=== PATIENT | female | born 1995 | race Caucasian/White ===

== ENCOUNTER → 2024-07-18 20:17 | Outpatient (REF) | payer OTHER, SELFPAY | LOC: PAVMRI 20:17 | PROVIDERS: ATTENDING PHYSICIAN Surgery; FAMILY PHYSICIAN Nurse Practitioner Family | DX: R10.13 Epigastric pain (principal) | CPT/HCPCS: 74181 ==

== ENCOUNTER 2024-08-14 18:58 | Emergency (ER) | payer OTHER, SELFPAY ==
[2024-08-14 18:59] VITALS: BP 114/68
--- NOTE | 2024-08-14 20:00 | ED.GENMED ---
History of Present Illness
General
Chief Complaint: Skin Surface Trauma
Source: patient
Exam Limitations: none
Time Seen by Provider: 08/14/24 19:28
Nursing documentation reviewed up to this point in time: agreed with
History of Present Illness
History of Present Illness:
Patient is a 28-year-old female who presented with laceration to right middle finger while cutting bread with a knife. No other injuries. Shots up-to-date. She is right-hand dominant.
Past History
Past History
ED Past Medical History: None
ED Past Surgical History: None
Social History
Tobacco: Non-smoker
Review of Systems
Review of Systems
Allergies reviewed?: Yes
All Other Systems: ROS reviewed and negative except as documented in HPI and ROS
Constitutional: Reports no symptoms
Skin: Reports other (Right middle finger laceration)
Neurological: Reports no symptoms
Psychiatric: Reports no symptoms
Phy Exam
General Physical Exam
General Presentation: no apparent distress
General age: appears stated age
General Skin: warm and dry
General Habitus: normal
General Mental: alert
General Hydration: appears well hydrated
Neurological Exam
Neurological Exam: alert and oriented x3
Musculoskeletal Exam
Musculoskeletal Exam: full ROM and other (Right middle finger with 2 cm horizontally situated full-thickness laceration to volar aspect of middle finger middle phalanx no tendon deficit able to flex and extend normal distal)
Skin Exam
Skin Exam: normal color
Psychiatric Exam
Psychiatric Exam: normal mood/affect
Course
Vital Signs
Initial and Last Documented VS:
Initial Vital Signs
Temp Pulse Resp BP Pulse Ox
98.4 F 79 19 114/68 96
08/14/24 18:59 08/14/24 18:59 08/14/24 18:59 08/14/24 18:59 08/14/24 18:59
Last Documented Vital Signs
Temp Pulse Resp BP Pulse Ox
98.4 F 79 19 114/68 96
08/14/24 18:59 08/14/24 18:59 08/14/24 18:59 08/14/24 18:59 08/14/24 18:59
Procedures
Laceration Closure
Right Middle Volar Third Finger:
Status of Wound: clean
Size of Wound in cm: 2
Description of Wound Edges: sharp
Preparation: cleaned with saline
Anesthesia: 1% Lidocaine
Revision/Debridement: routine- no revision
Type of Closure: single layer closure and interrupted sutures
Skin Closure Material: skin aidan and 5-0 nylon
Number of sutures: 3
MDM/Problems Addressed
Differential Diagnosis Includes:
Not limited to laceration
MDM/Problems Addressed:
Patient with simple laceration to right middle finger repaired as documented tetanus up-to-date no evidence of infection or tendon deficit.
*Critical Care Note
Total Time (30-74mins, 75-104mins- exclusive of procedures): Not Applicable
ED Attending Note
-
Portions of this chart may have been created with voice recognition software.� Occasional wrong word or��sound alike� substitutions may have occurred due to the inherent limitations of voice recognition software.
Discharge Plan
Departure
Disposition: Home (Routine Discharge)
Date of Disposition: 08/14/24
Time of Disposition: 20:03
Patient with high blood pressure during this ER visit?: Yes
Condition: Fair
Covid-19: Not Applicable
Discharge Problem:
Finger laceration
Instructions: Laceration Repair With Stitches (DC)
Prescriptions:
No Action
No Current Medications
0
Additional Instructions:
Keep wound clean and dry for 24 hours after 24 hrs wash with soap and water pat dry and apply small layer of antibiotic ointment to the area.
Do wound care twice a day. See family doctor the next 2 days as needed for wound check sutures are to be removed in 10 to 12 days. Return if any signs of infection of increased pain swelling redness drainage fever chills.
Interventions
Interventions:
*Risk Screen - Suicide Last Done: 08/14/24 18:59
*General Assessment Last Done: 08/14/24 18:59
*Neglect/Abuse Screening Last Done: 08/14/24 18:59
Discharge Date and Time
Print Language: IVORIAN
== END 2024-08-14 20:10 | disposition home or self-care (01) ==
LOC: EMR 18:58
PROVIDERS: EMERGENCY PHYSICIAN Emergency Medicine; FAMILY PHYSICIAN Family Medicine
DX: S61.212A Laceration without foreign body of right middle finger without damage to nail, initial encounter (principal); W26.0XXA Contact with knife, initial encounter
CPT/HCPCS: 99282; 12001

== ENCOUNTER → 2024-08-22 13:22 | Outpatient (REF) | payer OTHER, SELFPAY | LOC: HWRAD 13:22 | PROVIDERS: ATTENDING PHYSICIAN Obstetrics & Gynecology Gynecology; FAMILY PHYSICIAN Family Medicine | DX: N94.6 Dysmenorrhea, unspecified (principal) | CPT/HCPCS: 76830; 76856 ==

== ENCOUNTER 2024-10-07 14:53 | Outpatient (RCR) | payer OTHER, SELFPAY | END 2024-10-07 23:59 | disposition home or self-care (01) | LOC: RPT 14:53 | PROVIDERS: ATTENDING PHYSICIAN Internal Medicine; FAMILY PHYSICIAN Family Medicine | DX: M62.89 Other specified disorders of muscle (principal); K59.4 Anal spasm; K59.02 Outlet dysfunction constipation; Z73.6 Limitation of activities due to disability | CPT/HCPCS: 97112; 97140; 97162; 97530 ==

== ENCOUNTER → 2024-10-23 12:51 | Outpatient (REF) | payer OTHER, SELFPAY | LOC: RCS 12:51 | PROVIDERS: ATTENDING PHYSICIAN Nurse Practitioner Family | DX: R00.2 Palpitations (principal) | CPT/HCPCS: 93225; 93226 ==

== ENCOUNTER 2024-10-28 15:02 | Outpatient (RCR) | payer OTHER, SELFPAY | END 2024-10-28 23:59 | disposition home or self-care (01) | LOC: RPT 15:02 | PROVIDERS: ATTENDING PHYSICIAN Internal Medicine; FAMILY PHYSICIAN Family Medicine | DX: M62.89 Other specified disorders of muscle (principal); K59.4 Anal spasm; K59.02 Outlet dysfunction constipation; Z73.6 Limitation of activities due to disability | CPT/HCPCS: 97110; 97112; 97140; 97530 ==

== ENCOUNTER 2024-11-11 06:17 | Day surgery (SDC) | payer OTHER, SELFPAY | END 2024-11-11 14:23 | disposition home or self-care (01) | LOC: GI 06:17 | PROVIDERS: ATTENDING PHYSICIAN Internal Medicine | DX: R10.13 Epigastric pain (principal); R13.10 Dysphagia, unspecified; K29.60 Other gastritis without bleeding; K29.50 Unspecified chronic gastritis without bleeding | CPT/HCPCS: 43239; 88305; 88342 ==

== ENCOUNTER 2024-12-03 15:08 | Outpatient (RCR) | payer OTHER, SELFPAY | END 2024-12-03 23:59 | disposition home or self-care (01) | LOC: RPT 15:08 | PROVIDERS: ATTENDING PHYSICIAN Internal Medicine; FAMILY PHYSICIAN Family Medicine | DX: M62.89 Other specified disorders of muscle (principal); K59.4 Anal spasm; K59.02 Outlet dysfunction constipation; Z73.6 Limitation of activities due to disability | CPT/HCPCS: 97112; 97140; 97530 ==

== ENCOUNTER → 2024-12-03 15:50 | Outpatient (REF) | payer OTHER, SELFPAY | LOC: RCS 15:50 | PROVIDERS: ATTENDING PHYSICIAN Internal Medicine Cardiovascular Disease; FAMILY PHYSICIAN Nurse Practitioner Family | DX: R00.2 Palpitations (principal) | CPT/HCPCS: 93306 ==

== ENCOUNTER 2025-01-01 15:09 | Outpatient (RCR) | payer OTHER, SELFPAY | END 2025-01-01 23:59 | disposition home or self-care (01) | LOC: RPT 15:09 | PROVIDERS: ATTENDING PHYSICIAN Internal Medicine; FAMILY PHYSICIAN Family Medicine | DX: M62.89 Other specified disorders of muscle (principal); K59.4 Anal spasm; K59.02 Outlet dysfunction constipation; Z73.6 Limitation of activities due to disability; Z98.890 Other specified postprocedural states | CPT/HCPCS: 97112; 97140; 97164; 97530 ==

== ENCOUNTER 2025-01-27 15:02 | Outpatient (RCR) | payer OTHER, SELFPAY | END 2025-01-27 23:59 | disposition home or self-care (01) | LOC: RPT 15:02 | PROVIDERS: ATTENDING PHYSICIAN Internal Medicine; FAMILY PHYSICIAN Family Medicine | DX: M62.89 Other specified disorders of muscle (principal); K59.4 Anal spasm; K59.02 Outlet dysfunction constipation; Z73.6 Limitation of activities due to disability; Z98.890 Other specified postprocedural states | CPT/HCPCS: 97110; 97112; 97140; 97530 ==

== ENCOUNTER 2025-02-02 10:19 | Emergency (ER) | payer OTHER, SELFPAY ==
[2025-02-02 10:25] VITALS: BP 126/74
--- NOTE | 2025-02-02 11:10 | ED.GENMED ---
History of Present Illness
General
Chief Complaint: Abdominal Pain
Source: patient
Exam Limitations: none
Time Seen by Provider: 02/02/25 10:53
History of Present Illness
History of Present Illness:
29-year-old female presents with intermittent upper abdominal pain that she has been having for several months today's episode got worse. She has seen GI in the past and has had an endoscopy and colonoscopy. She is tried elimination diets. She
recently saw an blow mold machine operator. This morning she woke up feeling shaky and drank an electrolyte drink and subsequently went to eat breakfast. While eating bread more severe abdominal pain in the center upper abdomen that radiated to both sides
around to the back. She had became lightheaded like she was going to pass out. There is no chest pain. She denies any change in her stools. She does note she is losing weight. No other complaints at this time
Past History
Past History
ED Past Medical History: None
ED Past Surgical History: None
Social History
Tobacco: Non-smoker
Phy Exam
Physical Exam
Physical Exam:
General: Well-appearing female no acute respiratory distress
HEENT: Normocephalic atraumatic
Heart: Regular rate and rhythm
Lungs: Clear no wheeze
Abdomen is soft tender to the epigastric region no guarding rebound normal bowel sounds
Extremities: No cyanosis or edema
Course
Orders/Labs/Results
Orders:
Orders
02/02/25 11:09
CT Abd/pel W Iv And Oral Contr Urgent
Comment:
Reason For Exam: abdominal pain
Iohexol [Omnipaque] See Protocol PO NOW STA
Test Result ONCE
02/02/25 11:17
Complete Blood Count/With Diff Urgent
Comprehensive Metabolic Panel Urgent
Free T4 Urgent
HCG, Serum Qualitative Screen Urgent
Lipase Urgent
TSH Reflex To Free T4 Urgent
Abnormal Lab Results
02/02/25
11:17
Calcium 10.6 H mg/dl
(8.4-10.2)
TSH (Reflex) 0.45 L uIU/ml
(0.47-4.68)
02/02/25 11:17
02/02/25 11:17
Vital Signs
Initial and Last Documented VS:
Initial Vital Signs
Temp Pulse Resp BP Pulse Ox
97.8 F 76 16 126/74 100
02/02/25 10:25 02/02/25 10:25 02/02/25 10:25 02/02/25 10:25 02/02/25 10:25
Last Documented Vital Signs
Temp Pulse Resp BP Pulse Ox
97.8 F 74 15 118/69 100
02/02/25 10:25 02/02/25 13:15 02/02/25 11:45 02/02/25 13:00 02/02/25 13:15
MDM/Problems Addressed
Differential Diagnosis Includes:
Abdominal pain. Consider gastritis versus constipation versus pancreatitis versus peptic ulcer disease
Check labs including lipase. She was told her TSH was low. Will recheck thyroid. CT with oral and IV contrast pending
*Critical Care Note
Total Time (30-74mins, 75-104mins- exclusive of procedures): Not Applicable
Update Note
Update Note:
CT performed shows moderate mount of stool in the transverse and descending colon. No other acute finding noted. Patient reassured. She is feeling somewhat better upon reassessment. Recommend she follow-up with her GI doctor.
ED Attending Note
-
Portions of this chart may have been created with voice recognition software.� Occasional wrong word or��sound alike� substitutions may have occurred due to the inherent limitations of voice recognition software.
Discharge Plan
Departure
Patient Disposition: Home (Routine Discharge)
Date of Disposition: 02/02/25
Time of Disposition: 15:24
Patient with high blood pressure during this ER visit?: No
Discharge Problem:
Abdominal pain
Instructions: Abdominal Pain
Prescriptions:
No Action
No Current Medications
0
Referrals:
Molly Butler CRNP [Family Provider] -
Activity Restrictions/Additional Instructions:
As discussed there was a large amount of stool noted in the colon on your CAT scan. Please use MiraLAX if needed for constipation. Follow-up with your GI team otherwise
Interventions
Interventions:
*Risk Screen - Suicide Last Done: 02/02/25 10:27
*General Assessment Last Done: 02/02/25 11:14
*Neglect/Abuse Screening Last Done: 02/02/25 10:27
*ED- Fall Risk Assessment Last Done: 02/02/25 11:14
*ED COVID-19 Vaccine History Last Done: 02/02/25 11:14
GM-Xbvghb-Nxpiohfxaj Assessment Last Done: 02/02/25 11:20
Discharge Date and Time
Print Language: TAIWANESE
[2025-02-02 11:14] VITALS: BMI 21.2
[2025-02-02] MEDS: OMNIPAQUE 50 ML PO (11:15)
[2025-02-02 11:25] LABS: % Basophils 0.7 % (0-2); % Eosinophils 1.6 % (0-6); % Immature Granulocytes 0.4 % (0-0.5); % Lymphocytes 20.9 % (20.5-51.1); % Monocytes 6.4 % (1.7-9.3); Absolute Eosinophils 0.1 10^3/uL (0-0.7); Absolute Lymphocytes 1.2 10^3/uL (1.2-3.4); Absolute Monocytes 0.4 10^3/uL (0.1-0.6); Absolute Neutrophils 3.9 10^3/uL (1.4-6.5); Hematocrit 40.3 % (37.0-47.0); Hemoglobin 14.3 g/dL (12.0-16.0); Mean Corp Hgb Conc. 35.5 g/dL (33.0-37.0); Mean Corpuscular Hgb 30.4 pg (27.0-31.0); Mean Corpuscular Volume 85.6 fL (81.0-99.0); Mean Platelet Volume 10.2 fL (7.4-10.4); Nucleated Red Blood Cells % 0 %; Platelet Count 217 10^3/uL (130-400); Red Blood Cell Count 4.71 10^6/uL (4.20-5.40); Red Cell Dist. Width 11.7 % (11.5-14.5); White Blood Cell Count 5.6 10^3/uL (4.8-10.8)
[2025-02-02 11:41] LABS: HCG, Serum Qualitative Screen Negative
[2025-02-02 11:43] LABS: Albumin 4.4 g/dl (3.5-5.0); Blood Urea Nitrogen 15 mg/dl (7-17); Carbon Dioxide 26 mmol/L (22-30); Estimated Creatinine Clearance 113 ml/min; Total Protein 6.8 g/dl (6.3-8.2); eGFR > 60.00
[2025-02-02 12:00] VITALS: BP 105/63
[2025-02-02 12:15] LABS: TSH Reflex To Free T4 0.45 uIU/ml (0.47-4.68)
[2025-02-02 12:19] LABS: ALT (SGPT) 16 U/L (0-35); AST (SGOT) 18 U/L (14-36); Alkaline Phosphatase 55 U/L (38-126); Calcium 10.6 mg/dl (8.4-10.2); Chloride 107 mmol/L (98-107); Glucose 97 mg/dl (70-99); Lipase 115 U/L (23-300); Potassium 3.8 mmol/L (3.5-5.1); Sodium 141 mmol/L (135-145); Total Bilirubin 0.5 mg/dl (0.2-1.3)
[2025-02-02 12:45] LABS: Free T4 1.06 ng/dl (0.78-2.19)
[2025-02-02 13:00] VITALS: BP 118/69
== END 2025-02-02 15:38 | disposition home or self-care (01) ==
LOC: EMR 10:19
PROVIDERS: Physician Assistant; EMERGENCY PHYSICIAN Student in an Organized Health Care Education/Training Program; FAMILY PHYSICIAN Nurse Practitioner Family
DX: R10.10 Upper abdominal pain, unspecified (principal); R42 Dizziness and giddiness
CPT/HCPCS: 99284; 74177; 80053; 83690; 84439; 84443; 84703; 85025; Q9967

== ENCOUNTER 2025-02-10 19:43 | Emergency (ER) | payer OTHER, SELFPAY ==
[2025-02-10 19:48] VITALS: BP 109/73
[2025-02-10 20:13] LABS: % Basophils 0.7 % (0-2); % Eosinophils 1.9 % (0-6); % Immature Granulocytes 0.1 % (0-0.5); % Lymphocytes 34.9 % (20.5-51.1); % Monocytes 7.8 % (1.7-9.3); % Neutrophils 54.6 % (42.2-75.2); Absolute Basophils 0.1 10^3/uL (0-0.2); Absolute Eosinophils 0.1 10^3/uL (0-0.7); Absolute Lymphocytes 2.4 10^3/uL (1.2-3.4); Absolute Monocytes 0.5 10^3/uL (0.1-0.6); Absolute Neutrophils 3.8 10^3/uL (1.4-6.5); Hematocrit 38.8 % (37.0-47.0); Hemoglobin 13.7 g/dL (12.0-16.0); Mean Corp Hgb Conc. 35.3 g/dL (33.0-37.0); Mean Corpuscular Hgb 30.8 pg (27.0-31.0); Mean Corpuscular Volume 87.2 fL (81.0-99.0); Mean Platelet Volume 10.3 fL (7.4-10.4); Nucleated Red Blood Cells % 0 %; Platelet Count 237 10^3/uL (130-400); Red Blood Cell Count 4.45 10^6/uL (4.20-5.40); Red Cell Dist. Width 11.8 % (11.5-14.5); White Blood Cell Count 6.9 10^3/uL (4.8-10.8)
[2025-02-10 20:26] LABS: ALT (SGPT) 16 U/L (0-35); AST (SGOT) 17 U/L (14-36); Albumin 4.4 g/dl (3.5-5.0); Alkaline Phosphatase 66 U/L (38-126); Blood Urea Nitrogen 12 mg/dl (7-17); Calcium 9.6 mg/dl (8.4-10.2); Carbon Dioxide 25 mmol/L (22-30); Chloride 108 mmol/L (98-107); Glucose 118 mg/dl (70-99); Sodium 140 mmol/L (135-145); Total Bilirubin 0.4 mg/dl (0.2-1.3); Total Protein 6.9 g/dl (6.3-8.2); eGFR > 60.00
[2025-02-10 22:14] VITALS: BP 114/74
== END 2025-02-10 22:23 | disposition left against medical advice (07) ==
LOC: EMR 19:43
PROVIDERS: EMERGENCY PHYSICIAN Emergency Medicine
DX: R11.0 Nausea (principal); R10.9 Unspecified abdominal pain; R42 Dizziness and giddiness; R07.89 Other chest pain; R20.2 Paresthesia of skin; Z53.21 Procedure and treatment not carried out due to patient leaving prior to being seen by health care provider
CPT/HCPCS: 99281; 80053; 85025; 93005

== ENCOUNTER 2025-02-21 12:03 | Emergency (ER) | payer OTHER, SELFPAY ==
[2025-02-21 12:08] VITALS: BP 110/77
[2025-02-21 12:41] LABS: % Basophils 0.9 % (0-2); % Eosinophils 1.2 % (0-6); % Immature Granulocytes 0.3 % (0-0.5); % Lymphocytes 26.2 % (20.5-51.1); % Monocytes 7.2 % (1.7-9.3); % Neutrophils 64.2 % (42.2-75.2); Absolute Basophils 0.1 10^3/uL (0-0.2); Absolute Eosinophils 0.1 10^3/uL (0-0.7); Absolute Lymphocytes 1.5 10^3/uL (1.2-3.4); Absolute Monocytes 0.4 10^3/uL (0.1-0.6); Absolute Neutrophils 3.7 10^3/uL (1.4-6.5); Hematocrit 40.3 % (37.0-47.0); Hemoglobin 14.1 g/dL (12.0-16.0); Mean Corpuscular Hgb 30.3 pg (27.0-31.0); Mean Corpuscular Volume 86.5 fL (81.0-99.0); Mean Platelet Volume 10.5 fL (7.4-10.4); Nucleated Red Blood Cells % 0 %; Platelet Count 223 10^3/uL (130-400); Red Blood Cell Count 4.66 10^6/uL (4.20-5.40); Red Cell Dist. Width 11.5 % (11.5-14.5); White Blood Cell Count 5.7 10^3/uL (4.8-10.8)
[2025-02-21 12:55] LABS: Urine Albumin Negative (Neg - Trace); Urine Bilirubin Negative (Negative); Urine Character Clear (Clear); Urine Color Yellow; Urine Glucose Negative (Negative); Urine Ketone Negative (Negative); Urine Leukocyte Negative (Negative); Urine Nitrite Negative (Negative); Urine Occult Blood Negative (Negative); Urine Urobilinogen Negative (Neg - 1+)
[2025-02-21 13:04] LABS: HCG, Serum Qualitative Screen Negative
[2025-02-21 13:07] LABS: ALT (SGPT) 16 U/L (0-35); AST (SGOT) 18 U/L (14-36); Albumin 4.9 g/dl (3.5-5.0); Alkaline Phosphatase 52 U/L (38-126); Blood Urea Nitrogen 11 mg/dl (7-17); Calcium 9.6 mg/dl (8.4-10.2); Carbon Dioxide 24 mmol/L (22-30); Chloride 110 mmol/L (98-107); Glucose 99 mg/dl (70-99); Lipase 103 U/L (23-300); Potassium 3.9 mmol/L (3.5-5.1); Sodium 141 mmol/L (135-145); Total Bilirubin 0.6 mg/dl (0.2-1.3); Total Protein 7.5 g/dl (6.3-8.2); eGFR > 60.00
--- NOTE | 2025-02-21 13:14 | ED.GENMED ---
History of Present Illness
General
Chief Complaint: Abdominal Pain
Time Seen by Provider: 02/21/25 13:14
History of Present Illness
History of Present Illness:
TIME OF INITIAL ENCOUNTER: 1:30 PM
HPI: The patient presents due to upper abdominal pain. She has had a couple visits here to the ER for similar pains however the pain that she experienced last night and today was much worse. She said that she had [place] takeout last night and
whole fat [place] yogurt for dessert. She awoke at 2 AM with a reflux feeling, felt a gurgling sensation then developed headache for which she took Tylenol then developed paresthesias, hot flashes, headaches, nausea. Last year she ended up trying
stomach acid medicine and Carafate but made no difference. Dr. Perry suggested that maybe her symptoms could be related to endometriosis near the diaphragm however the patient has had endometriosis and this feels nothing like endometriosis it is
not related to her menstrual cycles.
EXAM:
GENERAL: Well appearing in no distress
HEENT: Moist oral mucosa
CARDIOVASCULAR: No murmurs, normal heart rate, regular rhythm, No chest wall tenderness
PULMONARY: No respiratory distress, breath sounds are clear and equal
ABDOMEN: Soft with no peritoneal signs, no tenderness
NEUROLOGIC: Excellent strength all extremities, no coordination deficits
PSYCHIATRIC: Appropriate mental status, normal insight and judgement, appears somewhat anxious
EXTREMITIES: Nontender, no edema, moves all extremities equally
SKIN: No rash, no lesions
NUMBER AND COMPLEXITY OF PROBLEMS ADDRESSED AT THE ENCOUNTER
� Chronic conditions affecting care: Undiagnosed 'GI issues', endometriosis
� Acute Exacerbation and/or Progression of Chronic Illness: This is an acute problem
� Differential Diagnosis includes: Gastritis, viscus perforation, duodenal ulcer, GERD, anxiety, endometriosis
AMOUNT AND/OR COMPLEXITY OF DATA TO BE REVIEWED AND ANALYZED
� I performed an independent evaluation of and my interpretation is:
EKG:
CT: CT abdomen pelvis shows no acute abnormality
X-rays:
Laboratory Studies: White count normal, chemistries unremarkable, lipase normal, hCG negative, urinalysis negative
Other: Ultrasound imaging of the gallbladder unremarkable
� Review of other/old records: The patient had a normal sonographic appearance of the pelvis in August of last year; CT of the abdomen pelvis with oral and IV contrast showed an increased amount of stool this past January. Last
year's abdominal MRI was unremarkable.
� Clinical information was obtained by an independent historian: None needed
� Prescriptions/Medications Considered but not given:
� Further testing considered but not performed:
RISK OF COMPLICATIONS AND/OR MORBIDITY OR MORTALITY OF PATIENT MANAGEMENT
� Social determinants of health affecting care:
� Discussion with other providers:
� Escalation of care including admission/observation vs risk of discharge considered: We talked about risks and benefits of repeat CT imaging but she wishes to proceed with CT and assuming that repeat ultrasound does not show any
abnormality.
ANY OTHER UPDATES:
Ultrasound shows no abnormality of the gallbladder. Will obtain CT imaging with oral and IV contrast.
6:15 PM: I reassessed patient. CT imaging unremarkable. She appears comfortable. She states she does have some other doctors to follow-up with. She states that her vegetable thinner does not deal with upper abdominal pain and was going to see a
general surgeon for further evaluation. She also has been seen by GI.
Past History
Past History
ED Past Medical History: None
ED Past Surgical History: None
Social History
Tobacco: Non-smoker
Phy Exam
Physical Exam
Physical Exam:
See HPI
Course
Orders/Labs/Results
Orders:
Orders
02/21/25 12:13
IV Insert/Care/Rem.- Treatment PRN
Test Result ONCE
02/21/25 12:28
Complete Blood Count/With Diff Urgent
Comprehensive Metabolic Panel Urgent
HCG, Serum Qualitative Screen Urgent
Comment: Notify provider if positive test present
Lipase Urgent
Urinalysis Reflex To Culture Urgent
Date Specimen was Collected: 02/21/25
Time Specimen was Collected: 12:13
02/21/25 13:31
0.9% Sodium Chloride 1000 ml [Nss] 1,000 ml IV BOLUS
Iohexol [Omnipaque] See Protocol PO NOW STA
US Abdomen Complete/Upper Urgent
Comment:
Reason For Exam: upper abd pain
02/21/25 13:32
CT Abd/pel W Iv And Oral Contr Urgent
Comment:
Reason For Exam: recurrence of upper abd pain now severe compared
Abnormal Lab Results
02/21/25
12:28
MPV 10.5 H fL
(7.4-10.4)
Chloride 110 H mmol/L
(98-107)
02/21/25 12:28
02/21/25 12:28
Vital Signs
Initial and Last Documented VS:
Initial Vital Signs
Temp Pulse Resp BP Pulse Ox
36.6 C 76 18 110/77 99
02/21/25 12:08 02/21/25 12:08 02/21/25 12:08 02/21/25 12:08 02/21/25 12:08
Last Documented Vital Signs
Temp Pulse Resp BP Pulse Ox
36.6 C 76 18 110/77 99
02/21/25 12:08 02/21/25 12:08 02/21/25 12:08 02/21/25 12:08 02/21/25 12:08
*Critical Care Note
Total Time (30-74mins, 75-104mins- exclusive of procedures): Not Applicable
ED Attending Note
-
Portions of this chart may have been created with voice recognition software.� Occasional wrong word or��sound alike� substitutions may have occurred due to the inherent limitations of voice recognition software.
Discharge Plan
Departure
Patient Disposition: Home (Routine Discharge)
Date of Disposition: 02/21/25
Time of Disposition: 18:05
Patient with high blood pressure during this ER visit?: Yes
Discharge Problem:
Abdominal pain
Instructions: Abdominal Pain
Prescriptions:
No Action
No Current Medications
0
Referrals:
Molly Butler CRNP [Family Provider] -
Activity Restrictions/Additional Instructions:
The cause of your symptoms is unclear. Basic blood work is normal. Urinalysis is normal. Ultrasound shows no abnormality of the hepatobiliary system including the gallbladder. The CAT scan of the abdomen pelvis shows no acute inflammatory
abnormality. The liver, gallbladder, bile duct, pancreas, spleen, adrenal glands, kidneys are all unremarkable. There is no swelling around the kidney. The aorta is normal. There is no swelling of lymph nodes. The appendix was normal. There is
no sign of bowel abnormality including no inflammation and no sign of obstruction. Follow-up with your doctors.
Interventions
Interventions:
*Risk Screen - Suicide Last Done: 02/21/25 12:08
*General Assessment Last Done: 02/21/25 12:08
*Neglect/Abuse Screening Last Done: 02/21/25 12:08
*Nursing Disposition Last Done: 02/21/25 18:22
MV-Nrulgx-Yqdatmnmpx Assessment Last Done: 02/21/25 12:41
Discharge Date and Time
Discharge Date/Time: 02/21/25 18:24
Print Language: KINYARWANDA
[2025-02-21] MEDS: NSS 1000 IV (13:36)
[2025-02-21] MEDS: OMNIPAQUE 50 ML PO (13:36)
== END 2025-02-21 18:24 | disposition home or self-care (01) ==
LOC: EMR 12:03
PROVIDERS: Emergency Medicine; EMERGENCY PHYSICIAN Emergency Medicine; FAMILY PHYSICIAN Nurse Practitioner Family
DX: R10.9 Unspecified abdominal pain (principal)
CPT/HCPCS: 99284; 74177; 76700; 80053; 81003; 83690; 84703; 85025; Q9967

== ENCOUNTER 2025-03-04 14:57 | Outpatient (RCR) | payer OTHER, SELFPAY | END 2025-03-04 23:59 | disposition home or self-care (01) | LOC: RPT 14:57 | PROVIDERS: ATTENDING PHYSICIAN Internal Medicine; FAMILY PHYSICIAN Family Medicine | DX: M62.89 Other specified disorders of muscle (principal); K59.4 Anal spasm; K59.02 Outlet dysfunction constipation; Z73.6 Limitation of activities due to disability; Z98.890 Other specified postprocedural states | CPT/HCPCS: 97530 ==

== ENCOUNTER 2025-05-01 17:21 | Emergency (ER) | payer OTHER, SELFPAY ==
[2025-05-01 17:27] VITALS: BP 112/72
[2025-05-01 17:48] LABS: Hematocrit 36.2 % (37.0-47.0); Hemoglobin 13.0 g/dL (12.0-16.0); Mean Corp Hgb Conc. 35.9 g/dL (33.0-37.0); Mean Corpuscular Volume 84.8 fL (81.0-99.0); Nucleated Red Blood Cells % 0 %; Platelet Count 297 10^3/uL (130-400); Red Cell Dist. Width 11.6 % (11.5-14.5)
[2025-05-01 17:55] LABS: HCG, Serum Qualitative Screen Negative
[2025-05-01 17:57] LABS: INR 1.04; PT 14.1 Sec (11.4-14.6)
[2025-05-01 18:00] LABS: ALT (SGPT) 26 U/L (0-35); AST (SGOT) 21 U/L (14-36); Albumin 5.0 g/dl (3.5-5.0); Alkaline Phosphatase 63 U/L (38-126); Blood Urea Nitrogen 18 mg/dl (7-17); Calcium 9.7 mg/dl (8.4-10.2); Carbon Dioxide 20 mmol/L (22-30); Chloride 108 mmol/L (98-107); Glucose 100 mg/dl (70-99); Potassium 3.9 mmol/L (3.5-5.1); Sodium 137 mmol/L (135-145); Total Protein 7.4 g/dl (6.3-8.2); eGFR > 60.00
[2025-05-01 18:11] LABS: Troponin I < 0.012 ng/ml
[2025-05-01 18:24] VITALS: BP 111/73
[2025-05-01 18:29] VITALS: BMI 16.8
--- NOTE | 2025-05-01 18:59 | ED.GENMED ---
History of Present Illness
General
Chief Complaint: Chest Pain
Source: patient
Exam Limitations: none
Time Seen by Provider: 05/01/25 18:44
Nursing documentation reviewed up to this point in time: agreed with
History of Present Illness
History of Present Illness:
Patient status post cholecystectomy, appendectomy, and endometrial tissue removal at [facility] 3 weeks ago, presents to ED secondary to intermittent sensation of palpitations since this morning. In addition, patient reports brief
pain behind her right knee yesterday, which now has resolved completely. Denies heart racing sensation. Denies chest pain. Denies shortness of breath. Denies nausea or vomiting. Denies new trauma. Patient has an appointment with her surgeon
next week. Denies history of blood clots, but she does have history of factor V Leiden deficiency.
Past History
Past History
ED Past Medical History: None
ED Past Surgical History: None
Social History
Tobacco: Non-smoker
Review of Systems
Review of Systems
Allergies reviewed?: Yes
All Other Systems: ROS reviewed and negative except as documented in HPI and ROS
Constitutional: Reports no symptoms; Denies fever
Respiratory: Reports no symptoms; Denies trouble breathing
Cardiac: Denies chest pain, palpitations or syncope
ABD/GI: Reports abdominal pain; Denies vomiting
Musculoskeletal: Reports no symptoms
Skin: Reports no symptoms
Neurological: Reports no symptoms
Phy Exam
Physical Exam
Physical Exam:
Physical Exam
General: no apparent distress, not acutely ill. afebrile
Head: nc/at. eomi
Neck: supple. no meningeal signs.
Heart: s1/s2 regular rate and rhythm
Lungs: no acute respiratory distress. clear bilaterally. chest wall nontender to palpation
Abdomen: normal bowel sounds. not tender.
Neuro: alert and oriented x 3. no focal neurological deficits
Skin: no rash
Psychiatric: well kept. interactive and cooperative
Extremities: no edema. no calf tenderness.
Scores
Heart Score for Chest Pain Patients
STEMI patient?: Not applicable
Course
Orders/Labs/Results
Orders:
Orders
05/01/25 17:22
Electrocardiogram (*1) Urgent
Reason for Study: Chest Pain
EKG- Treatment ONCE
05/01/25 17:32
Test Result ONCE
05/01/25 17:38
Complete Blood Count/With Diff Urgent
Comprehensive Metabolic Panel Urgent
HCG, Serum Qualitative Screen Urgent
Comment: Notify provider if positive test present
Prothrombin Time Urgent
Troponin I Urgent
05/01/25 18:54
US Legs, Right [US Periph Venous LOWER Ext RT] Urgent
Comment:
Reason For Exam: RLE pain, s/p recent surgery
05/01/25 19:00
D-Dimer Urgent
05/01/25 19:30
0.9% Sodium Chloride 500 ml [Nss] 500 ml IV BOLUS
Abnormal Lab Results
05/01/25 05/01/25
17:38 19:00
Hct 36.2 L %
(37.0-47.0)
Absolute Neuts (auto) 7.6 H 10^3/uL
(1.4-6.5)
Neutrophils % 76.3 H %
(42.2-75.2)
Lymphocytes % 17.2 L %
(20.5-51.1)
D-Dimer 1.04 H ug/mlFEU
(0.00-0.50)
Chloride 108 H mmol/L
(98-107)
Carbon Dioxide 20 L mmol/L
(22-30)
BUN 18 H mg/dl
(7-17)
Glucose 100 H mg/dl
(70-99)
05/01/25 17:38
05/01/25 17:38
Vital Signs
Initial and Last Documented VS:
Initial Vital Signs
Temp Pulse BP Pulse Ox
98.8 F 83 112/72 99
05/01/25 17:27 05/01/25 17:27 05/01/25 17:27 05/01/25 17:27
Last Documented Vital Signs
Temp Pulse Resp BP Pulse Ox
98.1 F 68 11 112/63 98
05/01/25 18:24 05/01/25 19:30 05/01/25 19:30 05/01/25 19:00 05/01/25 19:30
MDM/Problems Addressed
MDM/Problems Addressed:
Patient's sensation of palpitations, correlating with PACs and PVCs noted on the monitor, as patient describes sensation of quick couple beats. Will order right lower leg ultrasound to evaluate for potential DVT. Mildly elevated D-dimer, likely
secondary to recent significant abdominal surgery. If DVT study is negative, patient will be discharged home with recommendation to follow-up with her surgeon as scheduled next week.
Ultrasound lower extremity: No DVT
*Pulse Oximetry
SaO2: 99
Oxygen Mode of Delivery: Room air
Patient hypoxic: no
*Critical Care Note
Total Time (30-74mins, 75-104mins- exclusive of procedures): Not Applicable
ED Attending Note
-
Portions of this chart may have been created with voice recognition software.� Occasional wrong word or��sound alike� substitutions may have occurred due to the inherent limitations of voice recognition software.
Discharge Plan
Departure
Patient Disposition: Home (Routine Discharge)
Date of Disposition: 05/01/25
Time of Disposition: 20:34
Patient with high blood pressure during this ER visit?: No
Condition: Good
Discharge Problem:
Premature ventricular contractions (PVCs) (VPCs)
Instructions: Ventricular premature beats
Prescriptions:
No Action
No Current Medications
0
Referrals:
Molly Butler CRNP [Family Provider, Family Practice]
Activity Restrictions/Additional Instructions:
As discussed, please follow-up with your primary care physician, as well as surgeon next week, for re-evaluation
Interventions
Interventions:
*Risk Screen - Suicide Last Done: 05/01/25 17:27
*General Assessment Last Done: 05/01/25 18:31
*Neglect/Abuse Screening Last Done: 05/01/25 17:27
*ED- Fall Risk Assessment Last Done: 05/01/25 18:31
*ED COVID-19 Vaccine History Last Done: 05/01/25 18:31
*Nursing Disposition Last Done: 05/01/25 20:36
ED- Cardiac Assessment Last Done: 05/01/25 18:26
Discharge Date and Time
Discharge Date/Time: 05/01/25 20:38
Print Language: BELARUSIAN
[2025-05-01 19:00] VITALS: BP 112/63
[2025-05-01 19:20] LABS: D-Dimer 1.04 ug/mlFEU (0.00-0.50)
== END 2025-05-01 20:38 | disposition home or self-care (01) ==
LOC: EMR 17:21
PROVIDERS: Student in an Organized Health Care Education/Training Program; EMERGENCY PHYSICIAN Emergency Medicine; FAMILY PHYSICIAN Nurse Practitioner Family
DX: I49.3 Ventricular premature depolarization (principal); D68.51 Activated protein C resistance; Z90.49 Acquired absence of other specified parts of digestive tract
CPT/HCPCS: 99284; 96360; 80053; 84484; 84703; 85025; 85379; 85610; 93005; 93971